=== PATIENT | male | born 1955 | race Hispanic/Latino ===

== ENCOUNTER 2019-07-27 15:36 | Emergency (ER) | payer SELFPAY ==
[2019-07-27] MEDS ORDERED: LIDOCAINE 1% 20 ML MDV ONE (16:31)
[2019-07-27] MEDS ORDERED: TETANUS & DIPHTHERIA TOX,ADULT 0.5 ML VIAL ONE (16:31)
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
[2019-07-27] MEDS ORDERED: HYDRALAZINE HCL 20 MG/ML VIAL ONE (17:55)
[2019-07-27 18:00] LABS: Absolute Lymphocytes (CBC) 1.4 K/uL (0.7-4.9); Basophils % 0.5 % (0-1.3); Hematocrit 42.5 % (39.6-49.0); MPV 7.5 fL (7.6-11.3)
--- NOTE | 2019-07-27 18:08 | RAD REPORT ---
EXAM DESCRIPTION: RAD - Chest Single View - 07/27/2019 6:00 pm CLINICAL HISTORY: extreme hypertension Chest pain. COMPARISON: No comparisons FINDINGS: Portable technique limits examination quality. Mild interstitial pulmonary edema seen. The heart is moderately enlarged in size. No displaced fractu res. IMPRESSION: Mild CHF.
[2019-07-27 18:12] LABS: Protime INR 1.04
[2019-07-27 18:20] LABS: ALT/SGPT 45 U/L (12-78); AST/SGOT 23 U/L (15-37); Alkaline Phosphatase 64 U/L (45-117); BUN Blood Urea Nitrogen 15 mg/dL (7-18); Bicarbonate 26 mmol/L (21-32); Bilirubin Direct < 0.1 mg/dL (0-0.2); Bilirubin Total 0.3 mg/dL (0.2-1.0); Glucose Level 196 mg/dL (74-106); Magnesium 2.1 mg/dL (1.8-2.4); NT PRO-BNP 71 pg/mL (<125); Potassium 3.7 mmol/L (3.5-5.1); Protein, Total 7.6 g/dL (6.4-8.2); Sodium Level 140 mmol/L (136-145); Troponin (Emerg Dept Use Only) < 0.02 ng/mL (0.0-0.045)
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
[2019-07-28 05:42] VITALS: O2SAT 100
[2019-07-28 05:44] VITALS: BP 112/65; TEMP 98
--- NOTE | 2019-07-28 08:23 | EKG ---
Test Date: 2019-07-27 Test Time: 17:42:24 Global Recruiter: TR MEASUREMENT RESULTS: Intervals: Rate: 101 OR: 162 QRSD: 78 QT: 346 QTc: 448 [place]: P: 57 OR: 162 QRS: -29 T: 10 INTERPRETIVE STATEMENTS: Sinus tachycardia Minimal voltage criteria for LVH, may be normal variant Inferior infarct, age undetermined Abnormal ECG No previous ECG available for comparison Electronically Signed On 07-28-19 08:22:05 POTATO PANCAKE FRIER by Sridhar Hurtado
== END 2019-07-27 19:10 | disposition home or self-care (01) ==
LOC: ER 15:36
PROC: 0CQ0XZZ Repair Upper Lip, External Approach (ICD-10-PCS; principal; 2019-07-27)
DX: S01.511A Laceration without foreign body of lip, initial encounter (principal); S02.2XXA Fracture of nasal bones, initial encounter for closed fracture; Y04.2XXA Assault by strike against or bumped into by another person, initial encounter; Y93.9 Activity, unspecified; Y92.512 Supermarket, store or market as the place of occurrence of the external cause; I10 Essential (primary) hypertension; Z23 Encounter for immunization
CPT/HCPCS: 36415; 70450; 70486; 71045; 72125; 76377; 80048; 80076; 83735; 83880; 84484; 85025; 85610; 90471; 90714; 93005; 96374; 99284; J0360